=== PATIENT | female | born 1980 | race American Indian/Alaskan Native ===

== ENCOUNTER 2019-12-24 07:53 | Emergency (ER) | payer SELFPAY ==
[2019-12-24 08:02] VITALS: BP 154/98
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
== END 2019-12-24 10:25 | disposition left against medical advice (07) ==
LOC: ED 07:53
DX: S16.1XXA Strain of muscle, fascia and tendon at neck level, initial encounter (principal); M54.5 Low back pain; R51 Headache; V49.49XA Driver injured in collision with other motor vehicles in traffic accident, initial encounter; Y93.89 Activity, other specified; Y92.488 Other paved roadways as the place of occurrence of the external cause; Y99.8 Other external cause status
CPT/HCPCS: 99282